=== PATIENT | female | born 1990 | race Hispanic/Latino ===

== ENCOUNTER 2017-07-09 19:56 | Inpatient (IN) | payer MEDICAID, OTHER ==
[~2017-07-09] VITALS: Ht 154.9 cm; Wt 70.3 kg
[2017-07-09] MEDS ORDERED: OXYTOCIN-LR 20 UNITS/1000 ML 1,000 ML IV SCH (21:00)
[2017-07-09 21:11] LABS: APPEARANCE,URINE Cloudy (CLEAR); BILIRUBIN,URINE Negative (NEGATIVE); COLOR,URINE Dark Yellow (YELLOW); GLUCOSE, URINE (UA) Negative (NEGATIVE); KETONES,URINE 15 mg/dL (NEGATIVE); LEUKOCYTE ESTERASE ,URINE Moderate (NEGATIVE); NITRATE,URINE Negative (NEGATIVE); OCCULT BLOOD,URINE Negative (NEGATIVE); PH,URINE 6.5 (5.0-8.0); PROTEIN,URINE Negative (NEGATIVE)
[2017-07-09] MEDS ORDERED: LACTATED RINGERS 1000ML 1,000 ML IV ONE (21:33)
[2017-07-09 21:48] LABS: BACTERIA,URINE Few /HPF (None Seen); RBC,URINE 0-1 /HPF (0-1); SQUAMOUS EPITHELIAL CELL,UR Moderate /LPF (0-2)
[2017-07-09 21:49] LABS: MUCUS,URINE Rare LPF (None Seen)
[2017-07-09 22:46] LABS: HEMATOCRIT 32.1 % (36-48); MEAN CORPUSCULAR HEMOGLOBIN 33.5 pg (27.0-33.0); MEAN CORPUSCULAR HGB CONC 35.3 g/dL (32.0-36.0); PLATELET COUNT (AUTO) 200 K/uL (130-400); RED BLOOD CELL COUNT(AUTO) 3.38 MIL/uL (4.00-5.50); WHITE BLOOD COUNT (AUTO) 7.3 K/uL (4.8-10.8)
[2017-07-10] MEDS ORDERED: OXYTOCIN 10 USP UNITS/ML 20 UNIT in LACTATED RINGERS 1000ML 1,000 ML IV SCH (03:00)
[2017-07-10] MEDS ORDERED: OXYTOCIN 10 USP UNITS/ML ONE ×3 (03:39→18:29)
[2017-07-10] MEDS ORDERED: LACTATED RINGERS 1000ML 1,000 ML IV ONE (05:08)
[2017-07-10] MEDS ORDERED: MEPERIDINE-PF 50 MG/ML SYG ONE (07:32)
[2017-07-10] MEDS ORDERED: PROMETHAZINE HCL 25 MG/ML 1ML AMPULE IM ONE (07:32)
[2017-07-10] MEDS ORDERED: METHYLERGONOVINE MALEATE 0.2 MG/1 ML ML ONE (13:31)
[2017-07-10] MEDS ORDERED: MISOPROSTOL 200 MCG TABLET ONE (13:35)
[2017-07-10] MEDS ORDERED: DIPH,PERTUSS(ACELL),TET VAC/PF 0.5 ML VIAL IM PRN (14:45)
[2017-07-10] MEDS ORDERED: ACETAMINOPHEN-CODEINE 300/30MG TAB PO PRN (14:45)
[2017-07-10] MEDS ORDERED: BENZOCAINE/LANOLIN/ALOE VERA 60 ML AEROSOL TP PRN (14:45)
[2017-07-10] MEDS ORDERED: WITCH HAZEL 1 PAD TP PRN (14:45)
[2017-07-10] MEDS ORDERED: MEASLES/MUMPS/RUBELLA VACCINE, LIVE 0.5 ML/VIAL SQ PRN (14:45)
[2017-07-10] MEDS ORDERED: LANOLIN 30GM OINTMENT TP PRN (14:45)
[2017-07-10] MEDS ORDERED: HYDROCODONE/ACETAMINOPHEN 5/325 MG TAB PO PRN (14:45)
[2017-07-10] MEDS ORDERED: ACETAMINOPHEN 325 MG TAB PO PRN (14:45)
[2017-07-10 19:29] VITALS: BP 120/60
[2017-07-10] MEDS: IBUPROFEN 800 MG TAB PO PRN (20:04)
[2017-07-10] MEDS: DOCUSATE SODIUM 100 MG CAP PO SCH (20:52)
[2017-07-10 23:36] VITALS: BP 98/57
[2017-07-11 03:01] VITALS: BP 98/52
[2017-07-11] MEDS: IBUPROFEN 800 MG TAB PO PRN ×2 (03:45→14:05)
[2017-07-11 05:38] LABS: HEMATOCRIT 28.9 % (36-48); MEAN CORPUSCULAR HEMOGLOBIN 34.3 pg (27.0-33.0); MEAN CORPUSCULAR VOLUME 95.2 fL (79-99); PLATELET COUNT (AUTO) 187 K/uL (130-400); RED BLOOD CELL COUNT(AUTO) 3.04 MIL/uL (4.00-5.50); RED CELL DISTRIBUTION WIDTH 13.8 % (11.0-15.5); WHITE BLOOD COUNT (AUTO) 7.8 K/uL (4.8-10.8)
[2017-07-11 07:19] VITALS: BP 102/64
[2017-07-11 08:21] VITALS: BP 106/65
[2017-07-11 08:25] LABS: HEPATITIS Bs ANTIGEN SCREEN P Negative (Negative)
[2017-07-11] MEDS: DOCUSATE SODIUM 100 MG CAP PO SCH (08:59)
[2017-07-11 11:00] VITALS: BP 104/57
[2017-07-11] MEDS ORDERED: IBUP-2070 PO (14:52)
== END 2017-07-11 15:50 | disposition home or self-care (01) | DRG 775 ==
LOC: LDH 19:56 → WSH 07-10 19:25
PROVIDERS: ADMIT Obstetrics & Gynecology; ATTEND Obstetrics & Gynecology
PROC: 10E0XZZ Delivery of Products of Conception, External Approach (ICD-10-PCS; principal; 2017-07-10)
PROC: 10907ZC Drainage of Amniotic Fluid, Therapeutic from Products of Conception, Via Natural or Artificial Opening (ICD-10-PCS; 2017-07-10)
PROC: 3E033VJ Introduction of Other Hormone into Peripheral Vein, Percutaneous Approach (ICD-10-PCS; 2017-07-10)
DX: O80 Encounter for full-term uncomplicated delivery (principal); Z37.0 Single live birth; Z3A.39 39 weeks gestation of pregnancy
CPT/HCPCS: 36415; 76805; 81001; 85027; 86592; 86850; 86900; 86901; 87340; A4314; A4344; A4351; A4606; J2175; J2210; J2550; J2590; J7120